=== PATIENT | female | born 1960 | race Caucasian/White ===

== ENCOUNTER 2017-10-26 19:55 | Inpatient (IN) | payer BC, SELFPAY ==
[2017-10-26] MEDS ORDERED: Ciprofloxacin 500 MG TAB ONE (20:20)
[2017-10-26 20:23] LABS: #Eosinphils 0.1 thou/uL (0.0-0.7); #Lymphocytes 1.3 thou/uL (1.20-3.40); #Monocytes 0.9 thou/uL (0.11-0.59); #Neutrophils 6.3 thou/uL (1.40-6.50); %Basophils 0.4 % (0.0-1.0); %Eosinophils 0.9 % (0.0-10.0); %Lymphocytes 15.4 % (21.0-51.0); %Monocytes 10.1 % (0.0-10.0); %Neutrophils 73.3 % (42.0-75.0); Hemoglobin 14.9 g/dL (12.0-16.0); Mean Corpuscular HGB CONC 33.6 g/dL (32.0-36.0); Mean Corpuscular Hemoglobin 28.8 pg (27.0-31.0); Mean Corpuscular Volume 85.8 fl (81.0-99.0); Platelet Count 233 thou/uL (130-400); RBC Distribution Width 14.1 % (11.5-14.5); Red Blood Cell (RBC) Count 5.19 mill/uL (4.20-5.40); White Blood Cell (WBC) Count 8.6 thou/uL (4.8-10.8)
[2017-10-26 20:38] LABS: ALT (SGPT) 16 U/L (8-55); AST (SGOT) 17 U/L (5-34); Albumin 4.4 g/dL (3.5-5.0); Alkaline Phosphatase 129 U/L (40-150); Anion Gap 14 mmol/L (10-20); BUN (Urea Nitrogen) 14 mg/dL (9.8-20.1); Bilirubin, Total 0.5 mg/dL (0.2-1.2); Calc. Creatinine Clearance 0 mL/min (70-130); Calcium 9.5 mg/dL (7.8-10.44); Carbon Dioxide 22 mmol/L (22-29); Chloride 107 mmol/L (98-107); Estimated GFR-MDRD 83; Globulin 3.2 g/dL (2.4-3.5); Glucose 149 mg/dL (70-105); Potassium 3.9 mmol/L (3.5-5.1); Protein, Total 7.6 g/dL (6.0-8.3); Sodium 139 mmol/L (136-145)
--- NOTE | 2017-10-26 20:38 | RAD ---
PORTABLE AP CHEST X-RAY 10/26/17 HISTORY: Dyspnea. COMPARISON: 01/09/15. FINDINGS: The cardiac silhouette and pulmonary vasculature are within normal limits. The lungs are clear. There has been no interval change from prior study. IMPRESSION: No acute cardiopulmonary process. POS: [facility]
[2017-10-26 20:42] LABS: CKMB 3.3 ng/mL (0-6.6); Troponin I Less than 0.010 ng/mL (< 0.028)
[2017-10-26] MEDS ORDERED: Ondansetron ODT 4 MG TAB SL PRN (22:53)
[2017-10-26] MEDS ORDERED: Ondansetron HCl/PF 4 MG/2 ML Vial IVP PRN (22:53)
[2017-10-26] MEDS ORDERED: Acetaminophen 325 MG TAB PO PRN (22:53)
[2017-10-26] MEDS ORDERED: HYDROcodone/Acetaminophen 5/325 mg Tablet PO PRN ×2 (22:53)
[2017-10-26] MEDS: Sodium Chloride 0.9% 1,000 ML IV SCH (23:47)
[2017-10-27 01:14] VITALS: BMI 27.6
[2017-10-27] MEDS ORDERED: traZODone HCl 50 MG TAB PO PRN (01:44)
[2017-10-27] MEDS: traMADol HCl 50 MG TAB PO PRN ×5 (02:19→21:23)
[2017-10-27 04:31] LABS: #Basophils 0.1 thou/uL (0.0-0.2); #Lymphocytes 0.3 thou/uL (1.20-3.40); #Monocytes 0.2 thou/uL (0.11-0.59); #Neutrophils 6.6 thou/uL (1.40-6.50); %Basophils 1.6 % (0.0-1.0); %Eosinophils 0.1 % (0.0-10.0); %Monocytes 2.1 % (0.0-10.0); %Neutrophils 92.1 % (42.0-75.0); Hemoglobin 14.6 g/dL (12.0-16.0); Mean Corpuscular HGB CONC 32.8 g/dL (32.0-36.0); Mean Corpuscular Hemoglobin 28.9 pg (27.0-31.0); Mean Platelet Volume 7.6 fL (7.4-10.4); Platelet Count 246 thou/uL (130-400); RBC Distribution Width 14.1 % (11.5-14.5); Red Blood Cell (RBC) Count 5.05 mill/uL (4.20-5.40); White Blood Cell (WBC) Count 7.2 thou/uL (4.8-10.8)
[2017-10-27 04:32] LABS: Anion Gap 14 mmol/L (10-20); BUN (Urea Nitrogen) 12 mg/dL (9.8-20.1); Calc. Creatinine Clearance 93 mL/min (70-130); Calcium 9.7 mg/dL (7.8-10.44); Carbon Dioxide 22 mmol/L (22-29); Chloride 106 mmol/L (98-107); Estimated GFR-MDRD 83; Glucose 186 mg/dL (70-105); Sodium 138 mmol/L (136-145)
--- NOTE | 2017-10-27 07:16 | HP ---
PRIMARY CARE PHYSICIAN: Dale Eugene M.D. CHIEF COMPLAINT: Shortness of breath. HISTORY OF PRESENT ILLNESS: The patient is a 57-year-old female who comes into the hospital with com plaints of shortness of breath x1 day. The patient states that she woke up this morning, was feeling well. However, prior to taking a shower, she started noticing some shortness of breath with mild ex ertion. She denies any recent URI like symptoms or any sick contacts. The patient, however, does sm he a pack of cigarettes daily. The patient denies any fevers or chills or any chest pain. The theresa ent stated that her shortness of breath just got worse, which made her come into the ER. The patient was last hospitalized in August for the flu. PAST MEDICAL HISTORY: History of asthma, hypertension. 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 SOCIAL HISTORY: She continues to smoke a pack a day. Denies significant alcohol or drug use. ALLERGIES: She is allergic to ASPIRIN and CODEINE. CURRENT MEDICATIONS: The patient takes lisinopril 10 mg daily. She takes theophylline 300 mg b.i.d. She takes albuterol 1-2 puffs q.4 hours p.r.n. REVIEW OF SYSTEMS: Except for the ones mentioned in the HPI, review of systems were negative. Constitutional: Weight loss or gain, ability to conduct usual activities. Skin: Rash, itching. Eyes: Double vision, pain. ENT/Mouth: Nose bleeding, neck stiffness, pain, tenderness. Cardiovascular: Palpitations, dyspnea on exertion, orthopnea. Respiratory: Shortness of breath, wheezing, cough, hemoptysis, fever or night sweats. Gastrointestinal: Poor appetite, abdominal pain, heartburn, nausea, vomiting, constipation, or diarr hea. Genitourinary: Urgency, frequency, dysuria, nocturia. Musculoskeletal: Pain, swelling. Neurologic/Psychiatric: Anxiety, depression. Allergy/Immunologic: Skin rash, bleeding tendency. PHYSICAL EXAMINATION: VITAL SIGNS: Temperature of 96.8, pulse of 101, respirations are 26, 95% on BiPAP 10/5, blood pressu re is 120/79. GENERAL: She is awake, alert, oriented x3, does not appear in any distress. CARDIOVASCULAR: S1, S2 present. No murmurs, rubs or gallops. LUNGS: She has got significant expiratory wheezing all around her lung area. ABDOMEN: Soft, nontender. Bowel sounds are present x2. EXTREMITIES: No edema. Pedal pulses are present x2. LABORATORY DATA: Labs are as the following: WBCs of 8.6, hemoglobin of 14.4, hematocrit of 44.5, pl atelets of 233. Chemistry: Sodium of 139, potassium of 3.9, chloride of 107, creatinine of 0.72, gl ucose of 149. Troponins x3 were negative. The patient's chest x-ray was reviewed, indicates no acut e pulmonary issues. Flu was checked, which is still pending to collect. ASSESSMENT AND PLAN: The patient is a very pleasant 57-year-old female who admitted to the hospital for shortness of breath. 1. Shortness of breath, most likely secondary to chronic obstructive pulmonary disease exacerbation. The patient currently is on BiPAP 10/5. She is admitted to IMCU. We will start the patient on IV steroids. We will also start the patient on IV antibiotics. We will continue DuoNebs. The patient has been provided with a nicotine patch. 2. Smoking cessation. The patient encouraged to stop smoking given her history of asthma. Nicotine patch has been provided for the patient. 3. Deep venous thrombosis prophylaxis. We will put the patient on heparin subcu.
[2017-10-27] MEDS ORDERED: Acetaminophen 325 MG TAB PO PRN (10:12)
[2017-10-27] MEDS: Nicotine 21 MG PATCH TD SCH (10:16)
[2017-10-27] MEDS: Heparin 5,000 UNITS/ML VIAL SC SCH ×3 (10:18→20:23)
[2017-10-27] MEDS: Famotidine/PF 20 mg/2ml Vial SLOW IVP SCH ×2 (10:18→20:23)
[2017-10-27] MEDS ORDERED: Lidocaine 5% Patch TD SCH (11:00)
[2017-10-27] MEDS: Lidocaine 5% Patch TD SCH (12:23)
--- NOTE | 2017-10-27 13:24 | CON ---
DATE OF CONSULTATION: 10/27/2017 REASON FOR CONSULTATION: Shortness of breath, acute respiratory failure. HISTORY OF PRESENT ILLNESS: This is a 57-year-old female who was admitted last night with increasing shortness of breath and wheezing for about one day prior to admission. She has a known history of COPD and is continuing to smoke. She says she has not seen a electro plater in the past, but apparently is seeing someone over at [facility]. She was in the hospital at [facility] about 2 months ago with the flu. She required BiPAP last night that was discontinued this morning. She has continued to be short of breath. PAST MEDICAL HISTORY: 1. COPD/asthma. 2. Hypertension. PAST SURGICAL HISTORY: 1. Pituitary gland removal for benign tumor. 2. Appendectomy. 3. . 4. Breast reduction. SOCIAL HISTORY: Smokes 1 to 1-1/2 packs per day and has done so almost all of her adult life and has never quit for any reasonable amount of time. 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 She does not consume alcohol, does not use illicit drugs. ALLERGIES: ASPIRIN, CODEINE. MEDICATIONS PRIOR TO ADMISSION: Lisinopril, theophylline 300 mg b.i.d., albuterol and Symbicort 160/4.5 two puffs twice daily. REVIEW OF SYSTEMS: Twelve point review of systems otherwise negative. PHYSICAL EXAMINATION: VITAL SIGNS: Temperature 97.4, pulse 105, respirations 20, O2 sat 100% on 2 liters, blood pressure 129/86. GENERAL: She is awake, alert, in no distress. She appears older than her stated age of 57. HEENT: Pupils react. Sclerae icteric. Oropharynx clear. NECK: Without adenopathy or JVD. No accessory muscle use. LUNGS: Diffuse bilateral end expiratory wheezing. CARDIOVASCULAR: S1, S2 regular without murmur or gallop. ABDOMEN: Soft, nontender, nondistended. EXTREMITIES: No clubbing, cyanosis, or edema. LABORATORY DATA: White blood cell count 7.2, hematocrit 44, platelet count 246. Sodium 130, potassium 4, chloride 106, CO2 22, BUN 12, creatinine 0.7, glucose 186. Chest x-ray demonstrates hyperinflation. There is no mass, effusion or infiltrate present. ASSESSMENT: 1. Acute hypoxic respiratory failure secondary to chronic obstructive pulmonary disease. 2. Tobacco abuse. 3. Chronic obstructive pulmonary disease/asthma. PLAN: I have reviewed orders and agree with the antibiotics, nebulization therapy, and intravenous steroids. BiPAP as needed. I think she can probably transition out of the IMCU by tomorrow. I do not typically manage patients with theophylline and I would not ordinarily recommend continuing that medication. I have a feeling this is probably started by either an screen roller or another electro plater and my recommendation would be to stop that medication. MTDD
[2017-10-27] MEDS: Sodium Chloride 0.9% 1,000 ML IV SCH (15:12)
--- NOTE | 2017-10-27 15:16 | PDOC.PN ---
- Subjective Encounter Start Date: 10/27/17 Encounter Start Time: 15:14 Subjective: feels much better. off of Biapap -: requesting pain meds and Theophylline - Objective Resuscitation Status: Resuscitation Status FULL:Full Resuscitation MAR Reviewed: Yes Vital Signs & Weight: Vital Signs (12 hours) Temp Pulse Resp BP Pulse Ox 10/27/17 15:07 97 16 10/27/17 11:00 97.4 F L 105 H 22 H 129/86 100 10/27/17 10:25 96 20 10/27/17 08:00 96.6 F L 91 21 H 91 L 10/27/17 07:30 91 21 H 100 10/27/17 07:00 96.6 F L 93 28 H 133/86 100 10/27/17 03:31 96.5 F L 95 20 124/87 100 I&O: 10/26/17 10/27/17 10/28/17 06:59 06:59 06:59 Intake Total 765 Output Total 1050 600 Balance -285 -600 Result Diagrams: 10/27/17 03:33 10/27/17 03:33 Phys Exam - Physical Examination Constitutional: NAD HEENT: PERRLA, moist MMs, sclera anicteric, oral pharynx no lesions Neck: no nodes, no JVD, supple, full ROM Respiratory: wheezing present Cardiovascular: RRR, no significant murmur Gastrointestinal: soft, non-tender, no distention, positive bowel sounds Musculoskeletal: no edema, pulses present Neurological: non-focal, normal sensation, moves all 4 limbs Dx/Plan (1) Acute hypoxemic respiratory failure Code(s): J96.01 - ACUTE RESPIRATORY FAILURE WITH HYPOXIA Status: Acute (2) COPD exacerbation Code(s): J44.1 - CHRONIC OBSTRUCTIVE PULMONARY DISEASE W (ACUTE) EXACERBATION Status: Acute - Plan respiratory therapy, incentive spirometry, DVT proph w/SCDs nebs, O2,steroids,empiric ABx -: HD stable OK to transfer to medical * . Review of Systems - Medications/Allergies Allergies/Adverse Reactions: Allergies Allergy/AdvReac Type Severity Reaction Status Date / Time aspirin Allergy Verified 10/27/17 01:12 codeine Allergy Verified 10/27/17 01:12 Medications: Current Medications Acetaminophen (Tylenol) 650 mg PO Q6H PRN PRN Reason: Mild Pain (1-3) Albuterol/Ipratropium (Duoneb) 3 ml NEB [id number] SHAN Last Admin: 10/27/17 15:07 Dose: 3 ml Albuterol/Ipratropium (Duoneb) 3 ml NEB [id number] PRN PRN Reason: SOB &/or Wheezing Arformoterol Tartrate (Brovana) 15 mcg NEB BID-RT [facility]AN Budesonide (Pulmicort Neb Solution) 0.5 mg INH BID-RT [facility] Famotidine (Pepcid) 20 mg SLOW IVP Q12HR [facility] Last Admin: 10/27/17 10:18 Dose: 20 mg Heparin Sodium (Porcine) (Heparin) 5,000 units SC TID [facility] Last Admin: 10/27/17 10:18 Dose: 5,000 units Levofloxacin 750 mg/ Device 150 mls @ 100 mls/hr IVPB Q24HR [facility] Last Admin: 10/26/17 23:48 Dose: 150 mls Sodium Chloride (Normal Saline 0.9%) 1,000 mls @ 75 mls/hr IV .[id number] [facility] Last Admin: 10/26/17 23:47 Dose: 1,000 mls Lidocaine (Lidoderm 5% Patch) 1 patch TD 1100 SHAN Last Admin: 10/27/17 12:23 Dose: 1 patch Lisinopril (Zestril) 10 mg PO QPM [facility] Methylprednisolone Sodium Succinate (Solu-Medrol) 40 mg IVP Q6HR [facility] Miscellaneous Medication (Lidocaine Patch Removal) 1 each TOP 2300 SH[facility] Nicotine (Nicoderm Patch) 21 mg TD Q24HR [facility] Last Admin: 10/27/17 10:16 Dose: Not Given Sodium Chloride (Flush - Normal Saline) 10 ml IVF Q12HR [facility] Last Admin: 10/27/17 10:17 Dose: Not Given Sodium Chloride (Flush - Normal Saline) 10 ml IVF PRN PRN PRN Reason: Saline Flush Last Admin: 10/26/17 23:48 Dose: 10 ml Tramadol HCl (Ultram) 50 mg PO Q4H PRN PRN Reason: Moderate Pain (4-6) Last Admin: 10/27/17 10:17 Dose: 50 mg
[2017-10-27] MEDS: Budesonide 0.5 MG/2 ML NEB INH SCH (18:39)
[2017-10-27] MEDS: Arformoterol 15 MCG/2 ML NEB NEB SCH (18:41)
[2017-10-27] MEDS: Lisinopril 10 MG TAB PO SCH (20:24)
[2017-10-28] MEDS: Lidocaine Patch Removal 1 EACH TOP SCH ×2 (00:09→23:07)
[2017-10-28] MEDS: Sodium Chloride 0.9% 1,000 ML IV SCH ×2 (00:11→18:09)
[2017-10-28] MEDS: Arformoterol 15 MCG/2 ML NEB NEB SCH ×2 (07:29→19:32)
[2017-10-28] MEDS: Budesonide 0.5 MG/2 ML NEB INH SCH ×2 (07:29→19:32)
[2017-10-28] MEDS: Nicotine 21 MG PATCH TD SCH (07:55)
[2017-10-28] MEDS: Heparin 5,000 UNITS/ML VIAL SC SCH ×3 (08:00→20:39)
[2017-10-28] MEDS: traMADol HCl 50 MG TAB PO PRN ×2 (08:01→20:41)
[2017-10-28] MEDS: Famotidine/PF 20 mg/2ml Vial SLOW IVP SCH ×2 (08:01→20:39)
--- NOTE | 2017-10-28 08:47 | PDOC.PULPN ---
Progress Note: Subj/Obj - Subjective Date: 10/28/17 Time: 08:45 Narrative: Breathing better - ROS Respiratory: wheezing - Objective Allergies/Adverse Reactions: Allergies Allergy/AdvReac Type Severity Reaction Status Date / Time aspirin Allergy Verified 10/27/17 01:12 codeine Allergy Verified 10/27/17 01:12 MAR Reviewed: Yes Vital Signs: Vital Signs Temp 97.9 F 10/28/17 07:38 Pulse 79 10/28/17 07:38 Resp 20 10/28/17 07:38 BP 117/70 10/28/17 07:38 Pulse Ox 100 10/28/17 07:38 Intake & Output 10/27/17 10/28/17 10/28/17 18:59 06:59 18:59 Intake Total 2050 Output Total 900 950 Balance -900 1100 Intake: Intake, IV Amount 1050 Oral 1000 Output: Urine 900 950 Other: Voiding Method Bedside Commode Bedside Commode Progress Note: Exam - Physical Exam Constitutional: NAD HEENT: PERRLA Neck: no nodes, no JVD Cardiovascular: RRR Respiratory: wheezes Gastrointestinal: soft, non-tender Musculoskeletal: no edema Neurological: non-focal Lymphatic: no nodes Psychiatric: normal affect, A&O x 3 Progress Note: Data - Labs Result Diagrams: 10/27/17 03:33 10/27/17 03:33 Progress Note: A/P - Problems (1) Acute hypoxemic respiratory failure Current Visit: Yes Status: Acute Code(s): J96.01 - ACUTE RESPIRATORY FAILURE WITH HYPOXIA Assessment and Plan: No longer needing BiPAP (2) COPD exacerbation Current Visit: Yes Status: Acute Code(s): J44.1 - CHRONIC OBSTRUCTIVE PULMONARY DISEASE W (ACUTE) EXACERBATION Assessment and Plan: Continue steroids, nebs, abx, and O2 I anticipate she needs 1-2 more days in hospital, but she can transfer to medical
[2017-10-28] MEDS: Lidocaine 5% Patch TD SCH (11:55)
--- NOTE | 2017-10-28 14:53 | PDOC.PN ---
- Subjective Encounter Start Date: 10/28/17 Encounter Start Time: 14:51 Subjective: feels much better.still some wheezing but breathing easier - Objective Resuscitation Status: Resuscitation Status FULL:Full Resuscitation MAR Reviewed: Yes Vital Signs & Weight: Vital Signs (12 hours) Temp Pulse Resp BP Pulse Ox 10/28/17 11:49 98.2 F 89 22 H 110/61 98 10/28/17 10:50 104 H 16 99 10/28/17 08:00 97.9 F 79 20 98 10/28/17 07:38 97.9 F 79 20 117/70 100 10/28/17 07:29 97 10/28/17 07:26 98 17 97 10/28/17 04:00 98.2 F 89 14 99 10/28/17 02:54 108 H 16 97 I&O: 10/27/17 10/28/17 10/29/17 06:59 06:59 06:59 Intake Total 765 2050 960 Output Total 1050 1850 Balance -285 200 960 Result Diagrams: 10/27/17 03:33 10/27/17 03:33 Additional Labs: Microbiology 10/26/17 06:50 Nasal swab Influenza Types A,B Direct EIA - Final 10/28/17 00:10 Sputum Respiratory Culture - Preliminary Phys Exam - Physical Examination Constitutional: NAD HEENT: PERRLA, moist MMs, sclera anicteric, oral pharynx no lesions Neck: no nodes, no JVD, supple, full ROM Respiratory: wheezing present Cardiovascular: RRR, no significant murmur Gastrointestinal: soft, non-tender, no distention, positive bowel sounds Musculoskeletal: no edema, pulses present Neurological: non-focal, normal sensation, moves all 4 limbs Psychiatric: normal affect, A&O x 3 Skin: no rash Dx/Plan (1) Acute hypoxemic respiratory failure Code(s): J96.01 - ACUTE RESPIRATORY FAILURE WITH HYPOXIA Status: Acute (2) COPD exacerbation Code(s): J44.1 - CHRONIC OBSTRUCTIVE PULMONARY DISEASE W (ACUTE) EXACERBATION Status: Acute - Plan continue antibiotics, DVT proph w/SCDs cont nebs,steroids,empiric ABx.appreciate PCCM input -: still wheezing.will need 2-3 more days for clinical improvement -: OK to transfer to medical * . Review of Systems - Review of Systems Constitutional: negative: fever, chills, sweats, weakness, malaise, other ENT: negative: Ear Pain, Ear Discharge, Nose Pain, Nose Discharge, Nose Congestion, Mouth Pain, Mouth Swelling, Throat Pain, Throat Swelling, Other Respiratory: SOB with Excertion, Wheezing. negative: Cough, Dry, Shortness of Breath, Hemoptysis, Pleuritic Pain, Sputum Cardiovascular: negative: chest pain, palpitations, orthopnea, paroxysmal nocturnal dyspnea, edema, light headedness, other Gastrointestinal: negative: Nausea, Vomiting, Abdominal Pain, Diarrhea, Constipation, Melena, Hematochezia, Other Genitourinary: negative: Dysuria, Frequency, Incontinence, Hematuria, Retention , Other Musculoskeletal: negative: Neck Pain, Shoulder Pain, Arm Pain, Back Pain, Hand Pain, Leg Pain, Foot Pain, Other Skin: negative: Rash, Lesions, Martin, Bruising, Other - Medications/Allergies Allergies/Adverse Reactions: Allergies Allergy/AdvReac Type Severity Reaction Status Date / Time aspirin Allergy Verified 10/27/17 01:12 codeine Allergy Verified 10/27/17 01:12 Medications: Current Medications Acetaminophen (Tylenol) 650 mg PO Q6H PRN PRN Reason: Mild Pain (1-3) Albuterol/Ipratropium (Duoneb) 3 ml NEB [id number] [facility] Last Admin: 10/28/17 10:50 Dose: 3 ml Albuterol/Ipratropium (Duoneb) 3 ml NEB [id number] PRN PRN Reason: SOB &/or Wheezing Arformoterol Tartrate (Brovana) 15 mcg NEB BID-RT [facility] Last Admin: 10/28/17 07:29 Dose: 15 mcg Budesonide (Pulmicort Neb Solution) 0.5 mg INH BID-RT [facility] Last Admin: 10/28/17 07:29 Dose: 0.5 mg Famotidine (Pepcid) 20 mg SLOW IVP Q12HR [facility] Last Admin: 10/28/17 08:01 Dose: 20 mg Heparin Sodium (Porcine) (Heparin) 5,000 units SC TID [facility] Last Admin: 10/28/17 08:00 Dose: 5,000 units Levofloxacin 750 mg/ Device 150 mls @ 100 mls/hr IVPB Q24HR [facility] Last Admin: 10/28/17 00:04 Dose: 150 mls Sodium Chloride (Normal Saline 0.9%) 1,000 mls @ 75 mls/hr IV .[id number] [facility] Last Admin: 10/28/17 00:11 Dose: 1,000 mls Lidocaine (Lidoderm 5% Patch) 1 patch TD 1100 SHAN Last Admin: 10/28/17 11:55 Dose: 1 patch Lisinopril (Zestril) 10 mg PO QPM [facility] Last Admin: 10/27/17 20:24 Dose: Not Given Methylprednisolone Sodium Succinate (Solu-Medrol) 40 mg IVP Q6HR [facility] Last Admin: 10/28/17 11:56 Dose: 40 mg Miscellaneous Medication (Lidocaine Patch Removal) 1 each TOP 2300 [facility] Last Admin: 10/28/17 00:09 Dose: 1 each Nicotine (Nicoderm Patch) 21 mg TD Q24HR [facility] Last Admin: 10/28/17 07:55 Dose: Not Given Sodium Chloride (Flush - Normal Saline) 10 ml IVF Q12HR [facility] Last Admin: 10/28/17 09:59 Dose: 10 ml Sodium Chloride (Flush - Normal Saline) 10 ml IVF PRN PRN PRN Reason: Saline Flush Last Admin: 10/26/17 23:48 Dose: 10 ml Tramadol HCl (Ultram) 50 mg PO Q4H PRN PRN Reason: Moderate Pain (4-6) Last Admin: 10/28/17 08:01 Dose: 50 mg
[2017-10-28] MEDS: Lisinopril 10 MG TAB PO SCH (20:40)
[2017-10-29] MEDS: Arformoterol 15 MCG/2 ML NEB NEB SCH ×2 (07:37→18:10)
[2017-10-29] MEDS: Budesonide 0.5 MG/2 ML NEB INH SCH ×2 (07:38→18:10)
[2017-10-29] MEDS: Heparin 5,000 UNITS/ML VIAL SC SCH ×3 (08:16→21:30)
[2017-10-29] MEDS: Famotidine/PF 20 mg/2ml Vial SLOW IVP SCH (08:16)
[2017-10-29] MEDS: Nicotine 21 MG PATCH TD SCH (08:16)
[2017-10-29] MEDS: Sodium Chloride 0.9% 1,000 ML IV SCH (08:17)
--- NOTE | 2017-10-29 08:26 | PRG ---
DATE OF SERVICE: 10/29/2017 SUBJECTIVE: The patient is complaining that I stopped her theophylline. She is still wheezing profu sely. OBJECTIVE: VITAL SIGNS: Temperature is 98.7, pulse 87, respiration 22, O2 saturation 94%, blood pressure 116/72 . HEENT: Unremarkable. NECK: No JVD. LUNGS: Coarse wheezing bilaterally. CARDIOVASCULAR: S1, S2 regular. ABDOMEN: Soft. EXTREMITIES: No edema. LABORATORY DATA: No new labs were obtained today. ASSESSMENT: Chronic obstructive pulmonary disease exacerbation. PLAN: I told her I will defer to manage her off the theophylline. She is continuing Brovana, Pulmic ort, IV steroids, and antibiotics. I think we can stop her IV fluids, increase activity as tolerated . She was written a transfer to the medical unit yesterday.
[2017-10-29] MEDS: traMADol HCl 50 MG TAB PO PRN ×2 (11:01→21:27)
[2017-10-29] MEDS: Lidocaine 5% Patch TD SCH (11:02)
--- NOTE | 2017-10-29 15:03 | PDOC.PN ---
- Subjective Encounter Start Date: 10/29/17 Encounter Start Time: 15:02 Subjective: feels better.still some wheezing but better than yesterday - Objective Resuscitation Status: Resuscitation Status FULL:Full Resuscitation MAR Reviewed: Yes Vital Signs & Weight: Vital Signs (12 hours) Temp Pulse Resp BP Pulse Ox 10/29/17 14:27 91 16 94 L 10/29/17 11:09 98.6 F 82 20 122/82 91 L 10/29/17 11:06 86 16 96 10/29/17 07:43 98.7 F 87 22 H 94 L 10/29/17 07:41 98.7 F 87 22 H 126/72 94 L 10/29/17 07:38 84 16 97 10/29/17 07:37 84 16 97 10/29/17 07:34 84 16 97 10/29/17 04:00 96.8 F L 91 18 120/84 95 I&O: 10/28/17 10/29/17 10/30/17 06:59 06:59 06:59 Intake Total 2050 2317 600 Output Total 1850 950 Balance 200 1367 600 Result Diagrams: 10/27/17 03:33 10/27/17 03:33 Radiology Reviewed by me: Yes Phys Exam - Physical Examination Constitutional: NAD HEENT: PERRLA, moist MMs, sclera anicteric, oral pharynx no lesions Neck: no nodes, no JVD, supple, full ROM Respiratory: no wheezing, no rales, no rhonchi, clear to auscultation bilateral Cardiovascular: RRR, no significant murmur Gastrointestinal: soft, non-tender, no distention, positive bowel sounds Musculoskeletal: no edema, pulses present Neurological: non-focal, normal sensation, moves all 4 limbs Psychiatric: normal affect, A&O x 3 Skin: no rash Dx/Plan (1) Acute hypoxemic respiratory failure Code(s): J96.01 - ACUTE RESPIRATORY FAILURE WITH HYPOXIA Status: Acute (2) COPD exacerbation Code(s): J44.1 - CHRONIC OBSTRUCTIVE PULMONARY DISEASE W (ACUTE) EXACERBATION Status: Acute - Plan DVT proph w/SCDs cont brovans,nebs,empiric ABx.appreciate PCCM input -: RENETTA Theophylline.douglas added. -: ok for medical. -: michel JACKSON home in am * . Review of Systems - Review of Systems Constitutional: negative: fever, chills, sweats, weakness, malaise, other Eyes: negative: Pain, Vision Change, Conjunctivae Inflammation, Eyelid Inflammation, Redness, Other ENT: negative: Ear Pain, Ear Discharge, Nose Pain, Nose Discharge, Nose Congestion, Mouth Pain, Mouth Swelling, Throat Pain, Throat Swelling, Other Respiratory: SOB with Excertion, Wheezing. negative: Cough, Dry, Shortness of Breath, Hemoptysis, Pleuritic Pain, Sputum Cardiovascular: negative: chest pain, palpitations, orthopnea, paroxysmal nocturnal dyspnea, edema, light headedness, other Gastrointestinal: negative: Nausea, Vomiting, Abdominal Pain, Diarrhea, Constipation, Melena, Hematochezia, Other Genitourinary: negative: Dysuria, Frequency, Incontinence, Hematuria, Retention , Other Musculoskeletal: negative: Neck Pain, Shoulder Pain, Arm Pain, Back Pain, Hand Pain, Leg Pain, Foot Pain, Other Skin: negative: Rash, Lesions, Martin, Bruising, Other Neurological: negative: Weakness, Numbness, Incoordination, Change in Speech, Confusion, Seizures, Other - Medications/Allergies Allergies/Adverse Reactions: Allergies Allergy/AdvReac Type Severity Reaction Status Date / Time aspirin Allergy Verified 10/27/17 01:12 codeine Allergy Verified 10/27/17 01:12 Medications: Current Medications Acetaminophen (Tylenol) 650 mg PO Q6H PRN PRN Reason: Mild Pain (1-3) Last Admin: 10/29/17 04:50 Dose: 650 mg Albuterol/Ipratropium (Duoneb) 3 ml NEB [id number] [facility] Last Admin: 10/29/17 14:27 Dose: 3 ml Albuterol/Ipratropium (Duoneb) 3 ml NEB [id number] PRN PRN Reason: SOB &/or Wheezing Arformoterol Tartrate (Brovana) 15 mcg NEB BID-RT [facility] Last Admin: 10/29/17 07:37 Dose: 15 mcg Budesonide (Pulmicort Neb Solution) 0.5 mg INH BID-RT [facility] Last Admin: 10/29/17 07:38 Dose: 0.5 mg Famotidine (Pepcid) 20 mg PO BID [facility] Heparin Sodium (Porcine) (Heparin) 5,000 units SC TID [facility] Last Admin: 10/29/17 08:16 Dose: 5,000 units Levofloxacin (Levaquin) 750 mg PO 2000 [facility] Lidocaine (Lidoderm 5% Patch) 1 patch TD 1100 [facility] Last Admin: 10/29/17 11:02 Dose: Not Given Lisinopril (Zestril) 10 mg PO QPM [facility] Last Admin: 10/28/17 20:40 Dose: 10 mg Methylprednisolone Sodium Succinate (Solu-Medrol) 40 mg IVP Q6HR [facility] Last Admin: 10/29/17 11:02 Dose: 40 mg Miscellaneous Medication (Lidocaine Patch Removal) 1 each TOP 2300 [facility] Last Admin: 10/28/17 23:07 Dose: 1 each Montelukast Sodium (Singulair) 10 mg PO QPM [facility] Nicotine (Nicoderm Patch) 21 mg TD Q24HR [facility] Last Admin: 10/29/17 08:16 Dose: Not Given Sodium Chloride (Flush - Normal Saline) 10 ml IVF Q12HR [facility] Last Admin: 10/29/17 08:16 Dose: 10 ml Sodium Chloride (Flush - Normal Saline) 10 ml IVF PRN PRN PRN Reason: Saline Flush Last Admin: 10/26/17 23:48 Dose: 10 ml Tramadol HCl (Ultram) 50 mg PO Q4H PRN PRN Reason: Moderate Pain (4-6) Last Admin: 10/29/17 11:01 Dose: 50 mg
[2017-10-29] MEDS: Lisinopril 10 MG TAB PO SCH (20:00)
[2017-10-29] MEDS: Montelukast Sodium 10 mg Tablet PO SCH (21:27)
[2017-10-29] MEDS: Famotidine 20 MG TAB PO SCH (21:30)
[2017-10-29] MEDS: Lidocaine Patch Removal 1 EACH TOP SCH (23:11)
[2017-10-30] MEDS: Arformoterol 15 MCG/2 ML NEB NEB SCH ×2 (07:26→18:17)
[2017-10-30] MEDS: Budesonide 0.5 MG/2 ML NEB INH SCH ×2 (07:26→18:17)
--- NOTE | 2017-10-30 08:29 | PRG ---
DATE OF SERVICE: 10/30/2017 SUBJECTIVE: She feels better, but is still wheezing profusely. PHYSICAL EXAMINATION: VITAL SIGNS: Temperature is 97.6, pulse 82, respirations 14, O2 sat 95%. HEENT: Unremarkable. NECK: No JVD. LUNGS: Diffuse bilateral end expiratory wheezing. CARDIAC: S1 and S2 regular. ABDOMEN: Soft. EXTREMITIES: No edema. ASSESSMENT: Chronic obstructive pulmonary disease with exacerbation. PLAN: Probably close to discharge by tomorrow, Saturday. Continue IV steroids, nebulization treatment s. I have stopped her theophylline and have added Singulair instead. My preference would be to leav e her off the theophylline permanently.
[2017-10-30] MEDS: Heparin 5,000 UNITS/ML VIAL SC SCH ×3 (09:35→21:21)
[2017-10-30] MEDS: Famotidine 20 MG TAB PO SCH ×2 (09:35→21:20)
[2017-10-30] MEDS: Nicotine 21 MG PATCH TD SCH (09:35)
[2017-10-30] MEDS: Lidocaine 5% Patch TD SCH (13:20)
--- NOTE | 2017-10-30 14:39 | PDOC.PN ---
- Subjective Encounter Start Date: 10/30/17 Encounter Start Time: 14:37 Subjective: feels much better.still wheezing and difficulty breathing at night - Objective Resuscitation Status: Resuscitation Status FULL:Full Resuscitation MAR Reviewed: Yes Vital Signs & Weight: Vital Signs (12 hours) Temp Pulse Resp BP Pulse Ox 10/30/17 14:02 90 16 10/30/17 12:41 98.2 F 83 20 150/82 H 10/30/17 11:03 81 14 10/30/17 08:50 98.5 F 94 20 122/72 93 L 10/30/17 08:00 97.6 F 82 14 10/30/17 07:29 95 10/30/17 07:26 82 14 10/30/17 03:00 89 18 157/82 H 95 I&O: 10/29/17 10/30/17 10/31/17 06:59 06:59 06:59 Intake Total 2317 1810 Output Total 950 Balance 1367 1810 Result Diagrams: 10/27/17 03:33 10/27/17 03:33 Additional Labs: Microbiology 10/28/17 00:10 Sputum Respiratory Culture - Final 10/26/17 06:50 Nasal swab Influenza Types A,B Direct EIA - Final 10/28/17 00:10 Sputum Respiratory Culture - Preliminary Phys Exam - Physical Examination Constitutional: NAD HEENT: PERRLA, moist MMs, sclera anicteric, TM's clear, oral pharynx no lesions , 2+ tonsils Neck: no nodes, no JVD, supple, full ROM Respiratory: no rales, no rhonchi, wheezing present Cardiovascular: RRR, no significant murmur, no rub, gallop Gastrointestinal: soft, non-tender, no distention, positive bowel sounds Musculoskeletal: no edema, pulses present Neurological: non-focal, normal sensation, moves all 4 limbs Psychiatric: normal affect, A&O x 3 Dx/Plan (1) Acute hypoxemic respiratory failure Code(s): J96.01 - ACUTE RESPIRATORY FAILURE WITH HYPOXIA Status: Acute (2) COPD exacerbation Code(s): J44.1 - CHRONIC OBSTRUCTIVE PULMONARY DISEASE W (ACUTE) EXACERBATION Status: Acute - Plan DVT proph w/SCDs cont nebs,brovana.weaned off of O2. -: cont singulair .Theophylline stopped d/t significant adverse effect profile -: appreciate [facility] help -: likley DC tomorrow. * . Review of Systems - Review of Systems Constitutional: negative: fever, chills, sweats, weakness, malaise, other Respiratory: SOB with Excertion, Wheezing. negative: Cough, Dry, Shortness of Breath, Hemoptysis, Pleuritic Pain, Sputum Cardiovascular: negative: chest pain, palpitations, orthopnea, paroxysmal nocturnal dyspnea, edema, light headedness, other Gastrointestinal: negative: Nausea, Vomiting, Abdominal Pain, Diarrhea, Constipation, Melena, Hematochezia, Other Genitourinary: negative: Dysuria, Frequency, Incontinence, Hematuria, Retention , Other Musculoskeletal: negative: Neck Pain, Shoulder Pain, Arm Pain, Back Pain, Hand Pain, Leg Pain, Foot Pain, Other Skin: negative: Rash, Lesions, Martin, Bruising, Other Neurological: negative: Weakness, Numbness, Incoordination, Change in Speech, Confusion, Seizures, Other - Medications/Allergies Allergies/Adverse Reactions: Allergies Allergy/AdvReac Type Severity Reaction Status Date / Time aspirin Allergy Verified 10/27/17 01:12 codeine Allergy Verified 10/27/17 01:12 Medications: Current Medications Acetaminophen (Tylenol) 650 mg PO Q6H PRN PRN Reason: Mild Pain (1-3) Last Admin: 10/29/17 04:50 Dose: 650 mg Albuterol/Ipratropium (Duoneb) 3 ml NEB [id number] [facility] Last Admin: 10/30/17 14:02 Dose: 3 ml Albuterol/Ipratropium (Duoneb) 3 ml NEB [id number] PRN PRN Reason: SOB &/or Wheezing Arformoterol Tartrate (Brovana) 15 mcg NEB BID-RT [facility] Last Admin: 10/30/17 07:26 Dose: 15 mcg Budesonide (Pulmicort Neb Solution) 0.5 mg INH BID-RT [facility] Last Admin: 10/30/17 07:26 Dose: 0.5 mg Famotidine (Pepcid) 20 mg PO BID [facility] Last Admin: 10/30/17 09:35 Dose: 20 mg Heparin Sodium (Porcine) (Heparin) 5,000 units SC TID [facility] Last Admin: 10/30/17 09:35 Dose: 5,000 units Levofloxacin (Levaquin) 750 mg PO 1999 [facility] Last Admin: 10/29/17 20:45 Dose: 750 mg Lidocaine (Lidoderm 5% Patch) 1 patch TD 1100 [facility] Last Admin: 10/30/17 13:20 Dose: Not Given Lisinopril (Zestril) 10 mg PO QPM [facility] Last Admin: 10/29/17 20:00 Dose: 10 mg Methylprednisolone Sodium Succinate (Solu-Medrol) 40 mg IVP Q6HR [facility] Last Admin: 10/30/17 13:20 Dose: 40 mg Miscellaneous Medication (Lidocaine Patch Removal) 1 each TOP 2300 [facility] Last Admin: 10/29/17 23:11 Dose: Not Given Montelukast Sodium (Singulair) 10 mg PO QPM [facility] Last Admin: 10/29/17 21:27 Dose: 10 mg Nicotine (Nicoderm Patch) 21 mg TD Q24HR [facility] Last Admin: 10/30/17 09:35 Dose: Not Given Sodium Chloride (Flush - Normal Saline) 10 ml IVF Q12HR [facility] Last Admin: 10/30/17 09:36 Dose: 10 ml Sodium Chloride (Flush - Normal Saline) 10 ml IVF PRN PRN PRN Reason: Saline Flush Last Admin: 10/26/17 23:48 Dose: 10 ml Tramadol HCl (Ultram) 50 mg PO Q4H PRN PRN Reason: Moderate Pain (4-6) Last Admin: 10/29/17 21:27 Dose: 50 mg
[2017-10-30] MEDS: Montelukast Sodium 10 mg Tablet PO SCH (21:20)
[2017-10-30] MEDS: Lisinopril 10 MG TAB PO SCH (21:20)
[2017-10-30] MEDS: traMADol HCl 50 MG TAB PO PRN (22:18)
[2017-10-31] MEDS: Lidocaine Patch Removal 1 EACH TOP SCH (00:39)
[2017-10-31] MEDS: Budesonide 0.5 MG/2 ML NEB INH SCH (06:38)
[2017-10-31] MEDS: Arformoterol 15 MCG/2 ML NEB NEB SCH (06:54)
[2017-10-31] MEDS: Nicotine 21 MG PATCH TD SCH (08:04)
[2017-10-31] MEDS: Heparin 5,000 UNITS/ML VIAL SC SCH (08:04)
[2017-10-31] MEDS: Famotidine 20 MG TAB PO SCH (08:05)
[2017-10-31 08:30] VITALS: BP 151/94; TEMP 96.6
--- NOTE | 2017-10-31 10:20 | PDOC.PN ---
- Subjective Encounter Start Date: 10/31/17 Encounter Start Time: 08:00 -: old records requested/rev Patient seen and examined. No new complaints. No overnight events - Objective Resuscitation Status: Resuscitation Status FULL:Full Resuscitation MAR Reviewed: Yes Vital Signs & Weight: Vital Signs (12 hours) Temp Pulse Resp BP Pulse Ox 10/31/17 08:29 96.6 F L 94 20 151/94 H 95 10/31/17 08:00 97.8 F 83 14 10/31/17 06:36 83 14 95 10/31/17 05:35 97.8 F 71 20 154/82 H 95 10/31/17 01:24 88 16 95 10/31/17 00:40 97.7 F 82 20 139/84 95 10/30/17 22:54 85 16 97 I&O: 10/30/17 10/31/17 11/01/17 06:59 06:59 06:59 Intake Total 1810 480 Balance 1810 480 Result Diagrams: 10/27/17 03:33 10/27/17 03:33 Phys Exam - Physical Examination Constitutional: NAD HEENT: PERRLA, moist MMs, sclera anicteric Neck: no JVD, supple Respiratory: no rales, no rhonchi, wheezing present Cardiovascular: RRR, no significant murmur, no rub Gastrointestinal: soft, non-tender, no distention, positive bowel sounds Musculoskeletal: no edema, pulses present Neurological: non-focal, normal sensation, moves all 4 limbs Psychiatric: normal affect, A&O x 3 Skin: no rash, normal turgor Dx/Plan (1) Acute hypoxemic respiratory failure Code(s): J96.01 - ACUTE RESPIRATORY FAILURE WITH HYPOXIA Status: Resolved (2) COPD exacerbation Code(s): J44.1 - CHRONIC OBSTRUCTIVE PULMONARY DISEASE W (ACUTE) EXACERBATION Status: Acute (3) Hypertension Code(s): I10 - ESSENTIAL (PRIMARY) HYPERTENSION Status: Chronic - Plan cont current plan of care, continue antibiotics, respiratory therapy * pt wants to go home today * medication reviewed as below * symptomatic treatment * pulmonary ok for discharge * high risk for readmission. Review of Systems - Review of Systems ENT: negative: Ear Pain, Ear Discharge, Nose Pain, Nose Discharge, Nose Congestion, Mouth Pain, Mouth Swelling, Throat Pain, Throat Swelling, Other Respiratory: negative: Cough, Dry, Shortness of Breath, Hemoptysis, SOB with Excertion, Pleuritic Pain, Sputum, Wheezing Cardiovascular: negative: chest pain, palpitations, orthopnea, paroxysmal nocturnal dyspnea, edema, light headedness, other Gastrointestinal: negative: Nausea, Vomiting, Abdominal Pain, Diarrhea, Constipation, Melena, Hematochezia, Other Genitourinary: negative: Dysuria, Frequency, Incontinence, Hematuria, Retention , Other Musculoskeletal: negative: Neck Pain, Shoulder Pain, Arm Pain, Back Pain, Hand Pain, Leg Pain, Foot Pain, Other Skin: negative: Rash, Lesions, Martin, Bruising, Other - Medications/Allergies Allergies/Adverse Reactions: Allergies Allergy/AdvReac Type Severity Reaction Status Date / Time aspirin Allergy Verified 10/27/17 01:12 codeine Allergy Verified 10/27/17 01:12 Medications: Current Medications Acetaminophen (Tylenol) 650 mg PO Q6H PRN PRN Reason: Mild Pain (1-3) Last Admin: 10/29/17 04:50 Dose: 650 mg Albuterol/Ipratropium (Duoneb) 3 ml NEB [id number] [facility] Last Admin: 10/31/17 06:36 Dose: 3 ml Albuterol/Ipratropium (Duoneb) 3 ml NEB [id number] PRN PRN Reason: SOB &/or Wheezing Arformoterol Tartrate (Brovana) 15 mcg NEB BID-RT [facility] Last Admin: 10/31/17 06:54 Dose: 15 mcg Budesonide (Pulmicort Neb Solution) 0.5 mg INH BID-RT [facility] Last Admin: 10/31/17 06:38 Dose: 0.5 mg Famotidine (Pepcid) 20 mg PO BID [facility] Last Admin: 10/31/17 08:05 Dose: 20 mg Heparin Sodium (Porcine) (Heparin) 5,000 units SC TID [facility] Last Admin: 10/31/17 08:04 Dose: Not Given Levofloxacin (Levaquin) 750 mg PO 2000 [facility] Last Admin: 10/30/17 21:20 Dose: 750 mg Lidocaine (Lidoderm 5% Patch) 1 patch TD 1100 [facility] Last Admin: 10/30/17 13:20 Dose: Not Given Lisinopril (Zestril) 10 mg PO QPM [facility] Last Admin: 10/30/17 21:20 Dose: 10 mg Methylprednisolone Sodium Succinate (Solu-Medrol) 40 mg IVP Q6HR [facility] Last Admin: 10/31/17 05:38 Dose: 40 mg Miscellaneous Medication (Lidocaine Patch Removal) 1 each TOP 2300 [facility] Last Admin: 10/31/17 00:39 Dose: Not Given Montelukast Sodium (Singulair) 10 mg PO QPM [facility] Last Admin: 10/30/17 21:20 Dose: 10 mg Nicotine (Nicoderm Patch) 21 mg TD Q24HR [facility] Last Admin: 10/31/17 08:04 Dose: Not Given Sodium Chloride (Flush - Normal Saline) 10 ml IVF Q12HR [facility] Last Admin: 10/31/17 08:04 Dose: 10 ml Sodium Chloride (Flush - Normal Saline) 10 ml IVF PRN PRN PRN Reason: Saline Flush Last Admin: 10/31/17 05:38 Dose: 10 ml Tramadol HCl (Ultram) 50 mg PO Q4H PRN PRN Reason: Moderate Pain (4-6) Last Admin: 10/30/17 22:18 Dose: 50 mg
--- NOTE | 2017-10-31 10:22 | PRG ---
DATE OF SERVICE: 10/31/2017 SUBJECTIVE: The patient is about the same. She says she is walking around and that she is bored. S he wants to go home. OBJECTIVE: VITAL SIGNS: Temperature 96.6, pulse 94, respirations 20, O2 sat 95%, blood pressure 151/94. HEENT: Unremarkable. NECK: No JVD. CHEST: With bilateral diffuse wheezing. CARDIAC: S1 and S2 regular. ABDOMEN: Soft. EXTREMITIES: No edema. ASSESSMENT: Chronic obstructive pulmonary disease with exacerbation. PLAN: The patient was fairly insistent on going home today. I think it is going to take some time f or the wheezing to dissipate, but certainly she is performing enough activities of daily living. She can function well at home. I would taper her prednisone dose over about 2 weeks. She is very much wanting to restart theophylline at home. I have no issue with that. I would continue with Singulair . She has been told not to smoke. She should be on nebulization treatments at least 4 times daily. Additionally, she has been a long-acting beta agonist/steroid inhaler such as Symbicort, Advair or D ulera. I would be glad to see her in the office in a couple of weeks.
[2017-10-31] MEDS: Lidocaine 5% Patch TD SCH (10:43)
--- NOTE | 2017-10-31 11:39 | DIS ---
DATE OF ADMISSION: 10/26/2017 DATE OF DISCHARGE: 10/31/2017 PRIMARY CARE PHYSICIAN: Dr. Dale Eugene. DISCHARGE DISPOSITION: Home. PRIMARY DISCHARGE DIAGNOSES: 1. Acute hypoxic respiratory failure, resolved. 2. Chronic obstructive pulmonary disease exacerbation, uncontrolled. SECONDARY DISCHARGE DIAGNOSIS: Hypertension. PRIMARY PROCEDURE/OPERATION: None. RADIOLOGICAL INVESTIGATION: Chest x-ray. SIGNIFICANT LABORATORIES: WBC 7.2, hemoglobin 14.6, platelet 246. Creatinine 0.72. Electrolytes no rmal. LFT normal. Cardiac enzymes negative. DISCHARGE MEDICATIONS: Brovana 15 mcg nebulization b.i.d., Pulmicort nebulization b.i.d., Pepcid 20 mg p.o. b.i.d., DuoNeb q.6 hourly p.r.n., Levaquin 750 mg p.o. daily for 7 days, lisinopril 10 mg p.o . daily, Singulair 10 mg p.o. daily. Prednisone 40 mg p.o. daily for 5 days, then 20 mg p.o. daily f or 5 days, then 10 mg p.o. daily for 5 days, then stop. CONTRAINDICATIONS: None. CODE STATUS: FULL CODE. INPATIENT CONSULTANTS: Dr. Bell was following while in hospital. ALLERGIES: ASPIRIN and CODEINE. TEST RESULTS PENDING ON DISCHARGE: None. DISCHARGE PLAN: Post hospital, the patient will follow up with primary care physician and Dr. Linden lim as instructed. HOSPITAL COURSE: A 57-year-old female with above-mentioned medical problem who was admitted by Dr. Quincy Molina. Please see her H&P for further detail. The patient was admitted for increasing shor tness of breath. She was found with acute COPD exacerbation. She also had hypoxic respiratory failu re on admission. Pulmonary team was consulted while in hospital. She was treated with respiratory t herapy, steroid, and empiric antibiotic therapy. Initially in the emergency room, she also required BiPAP and subsequently the patient was admitted momentarily in IMCU and upon stabilization, the patie nt was transferred to medical floor. The patient was given counseling to avoid smoking while in hosp ital. This patient has mild wheezing, but she is on room air. Her hypoxic respiratory failure, improved. She is ambulatory and able to talk in full sentences. The patient wanted to go home today. Dr. Mclaughlin cer okay with discharging this patient home with the above-mentioned medications. All new medication prescription sent to her pharmacy. The patient is seen and examined at bedside today. Please see my progress note from today for alise r details.
== END 2017-10-31 11:42 | disposition home or self-care (01) | DRG 190 ==
LOC: ERS 19:55 → IMCU/EMU 22:47 → 3SE 10-29 23:11
PROVIDERS: ADMIT Internal Medicine; ATTEND Internal Medicine
PROC: 5A09357 Assistance with Respiratory Ventilation, Less than 24 Consecutive Hours, Continuous Positive Airway Pressure (ICD-10-PCS; principal; 2017-10-26)
DX: J44.1 Chronic obstructive pulmonary disease with (acute) exacerbation (principal); J96.01 Acute respiratory failure with hypoxia; F17.210 Nicotine dependence, cigarettes, uncomplicated; I10 Essential (primary) hypertension
CPT/HCPCS: 36415; 71045; 80048; 80053; 82553; 83605; 83880; 84484; 85025; 87070; 87205; 87804; 93005; 94640; 94660; A4216; J1644; J2920; J7620; J7626

== ENCOUNTER 2018-08-22 14:57 | Emergency (ER) | payer BC ==
[2018-08-22 15:55] LABS: Bilirubin Negative (Negative); Blood, Urine Moderate (Negative); Clarity Slightly Cloudy (Clear); Glucose, Urine (Dipstick) Negative (Negative); Leukocyte Negative (Negative); Nitrite Negative (Negative); Protein, Urine (Dipstick) 100 mg/dL (Neg-Trace); Urobilinogen 0.2 mg/dL (0.2-1.0); pH, Urine 5.5 (5.0-9.0)
[2018-08-22 15:57] LABS: Specific Gravity, Urine 1.026 (1.002-1.036)
[2018-08-22 16:01] LABS: Bacteria/HPF Rare-Few HPF (None Seen); Squamous Epithelial 0-3 HPF (0-3)
[2018-08-22 16:02] LABS: Crystals/HPF 1+ CA OXALATE HPF (Negative)
[2018-08-22 16:08] LABS: ALT (SGPT) 20 U/L (8-55); AST (SGOT) 19 U/L (5-34); Albumin 4.4 g/dL (3.5-5.0); Alkaline Phosphatase 95 U/L (40-150); Anion Gap 16 mmol/L (10-20); BUN (Urea Nitrogen) 17 mg/dL (9.8-20.1); Bilirubin, Total 0.2 mg/dL (0.2-1.2); Calc. Creatinine Clearance 0 mL/min (70-130); Calcium 10.2 mg/dL (7.8-10.44); Carbon Dioxide 24 mmol/L (22-29); Chloride 104 mmol/L (98-107); Estimated GFR-MDRD 66; Glucose 104 mg/dL (70-105); Lipase 32 U/L (8-78); Potassium 4.4 mmol/L (3.5-5.1); Protein, Total 7.4 g/dL (6.0-8.3); Sodium 140 mmol/L (136-145)
[2018-08-22 16:15] LABS: Hemoglobin 15.5 g/dL (12.0-16.0); Lymphocytes 25 % (21-51); MDiff Complete? YES; Mean Corpuscular HGB CONC 33.1 g/dL (32.0-36.0); Mean Corpuscular Hemoglobin 29.5 pg (27.0-31.0); Mean Corpuscular Volume 89.4 fL (78.0-98.0); Mean Platelet Volume 7.4 fL (7.4-10.4); Monocytes 9 % (0-10); Neutrophil 59 % (42-75); Platelet Count 231 thou/uL (130-400); Platelet Morphology Comment Appears Adequate; RBC Distribution Width 13.2 % (11.5-14.5); Reactive Lymphocytes 7 % (0-10); Red Blood Cell (RBC) Count 5.26 mill/uL (4.20-5.40); White Blood Cell (WBC) Count 5.3 thou/uL (4.8-10.8)
--- NOTE | 2018-08-22 17:05 | CT ---
CT OF THE ABDOMEN AND PELVIS WITH IV CONTRAST: 08/22/18 INDICATION: History of abdominal pain for three days. FINDINGS: There is a 1.2 cm staghorn calculus within the right renal pelvis which is an interval development si nce the comparison dated 01/17/11. No josie hydronephrosis is evident. There is a tiny suspected 1.6 m m stone within the distal right ureter. There is a 2.7 mm stone seen within the posterior bladder. Th ere is fatty infiltration of the liver. Pancreas, adrenal glands and spleen appear within normal limi ts. The appendix is not definitely seen and is presumed to be surgically absent. There is mild amount of retained stool within the colon. The bladder is partially decompressed. No definite acute osseous abnormality is evident. There is mild scattered degenerative and osteoarthritic change. IMPRESSION: 1. Findings most consistent with a recently passed stone. There is a 2.6 mm stone within the pos terior right bladder. There is a suspected 1.6 mm stone within the distal right ureter. There is a no nobstructing staghorn calculus within the right renal pelvis measuring 1.2 cm. 2. Fatty liver. POS: CET
== END 2018-08-22 17:42 | disposition home or self-care (01) ==
LOC: SCSER 14:57
DX: N20.2 Calculus of kidney with calculus of ureter (principal); I10 Essential (primary) hypertension; J45.909 Unspecified asthma, uncomplicated; F17.210 Nicotine dependence, cigarettes, uncomplicated
CPT/HCPCS: 74177; 80053; 81003; 81015; 83690; 85025; 93005

== ENCOUNTER 2019-01-29 09:06 | Emergency (ER) | payer BC ==
[~2019-01-29 09:06] MED LIST: Iopamidol 370 76% 100 ML VIAL ONE
[2019-01-29] MEDS ORDERED: Ondansetron PF 4 MG/2 ML Vial ONE (10:06)
[2019-01-29] MEDS ORDERED: Metoclopramide HCl 10 MG/2 ML VIAL ONE (10:23)
[2019-01-29] MEDS ORDERED: Ketorolac Tromethamine 30 MG/ML VIAL ONE (10:23)
[2019-01-29] MEDS ORDERED: diphenhydrAMINE 50 MG/ML VIAL ONE (10:23)
[2019-01-29 10:38] LABS: #Basophils 0.1 thou/uL (0.0-0.2); #Lymphocytes 2.8 thou/uL (1.20-3.40); #Monocytes 1.8 thou/uL (0.11-0.59); #Neutrophils 7.8 thou/uL (1.40-6.50); %Basophils 0.9 % (0.0-1.0); %Eosinophils 0.2 % (0.0-10.0); %Lymphocytes 22.5 % (21.0-51.0); %Monocytes 14.2 % (0.0-10.0); %Neutrophils 62.2 % (42.0-75.0); Hemoglobin 18.4 g/dL (12.0-16.0); Mean Corpuscular HGB CONC 33.6 g/dL (32.0-36.0); Mean Corpuscular Volume 89.3 fL (78.0-98.0); Mean Platelet Volume 6.7 fL (7.4-10.4); Platelet Count 429 thou/uL (130-400); RBC Distribution Width 12.9 % (11.5-14.5); Red Blood Cell (RBC) Count 6.13 mill/uL (4.20-5.40); White Blood Cell (WBC) Count 12.5 thou/uL (4.8-10.8)
[2019-01-29 10:41] LABS: BHCG - Serum Negative (NEGATIVE); Pregs Control Background? CLEAR/WHITE (CLR/WHITE); Pregs Control Bar Appear? YES (CONTROL BAR)
[2019-01-29 10:48] LABS: ALT (SGPT) 14 U/L (8-55); AST (SGOT) 10 U/L (5-34); Albumin 4.6 g/dL (3.5-5.0); Alkaline Phosphatase 97 U/L (40-150); Anion Gap 18 mmol/L (10-20); BUN (Urea Nitrogen) 33 mg/dL (9.8-20.1); Bilirubin, Total 0.5 mg/dL (0.2-1.2); Calc. Creatinine Clearance 0 mL/min (70-130); Calcium 9.9 mg/dL (7.8-10.44); Carbon Dioxide 31 mmol/L (22-29); Chloride 96 mmol/L (98-107); Estimated GFR-MDRD 44; Glucose 115 mg/dL (70-105); Lipase 13 U/L (8-78); Potassium 3.3 mmol/L (3.5-5.1); Protein, Total 7.6 g/dL (6.0-8.3); Sodium 142 mmol/L (136-145)
--- NOTE | 2019-01-29 11:18 | CT ---
CT ABDOMEN AND PELVIS WITH IV COTNRAST: HISTORY: Nausea and vomiting, abdominal pain. History of kidney stones in the right kidney. COMPARISON: 08/22/2018. FINDINGS: The lung bases are unremarkable. There is fatty infiltration of the liver. No calcified gallstones are seen. The spleen, pancreas, adrenal glands, and left kidney are normal. There is a nonobstructi ng 6 mm calculus in the calyx of the right kidney. No calculi are seen in the ureters or the urinary bladder on either side. No hydroureteral nephrosis is noted on either side. No free air, free fluid, or lymphadenopathy is seen in the abdomen or pelvis. There is colonic diver ticulosis without evidence of diverticulitis. Uterus is present. The small bowel loops are not abno rmally dilated. There are vascular calcifications without evidence of aneurysmal dilatation of the a bdominal aorta. Degenerative changes are present in the spine. IMPRESSION: 1. Nonobstructing 6 mm right renal calculus. 2. Colonic diverticulosis. 3. Fatty liver. POS: OFF
[2019-01-29] MEDS ORDERED: Potassium Chloride 20 MEQ TAB ONE (11:22)
== END 2019-01-29 12:36 | disposition home or self-care (01) ==
LOC: SCSER 09:06
DX: E87.6 Hypokalemia (principal); R10.9 Unspecified abdominal pain; I10 Essential (primary) hypertension; F17.210 Nicotine dependence, cigarettes, uncomplicated
CPT/HCPCS: 74177; 80053; 83690; 84703; 85025; 93005; 96361; 96365; 96372; 96375; J0500; J1200; J1885; J2405; J2765; Q9967